=== PATIENT | female | born 1955 | race Caucasian/White ===

== ENCOUNTER 2016-09-29 12:32 | Emergency (ER) | payer OTHER ==
[2016-09-29 12:36] VITALS: TEMP 98.1; BMI 30.4
--- NOTE | 2016-09-29 13:47 | PDOC ---
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 Patient reports taking Isoniazid for latent TB for 3 weeks. She went to her PCP for a routine lab work yesterday and was told to stop taking her TB meds secondary to the elevated liver enzymes. Patient believes this is the first time she had her blood levels checked after taking her TB meds. She reports persistent nonproductive coughing. Patient denies any associated abd pain, n/v. Denies abdominal pain, nausea, vomiting, diarrhea Denies fever, chills Denies lightheadedness Denies chest pain, shortness of breath PCP: Dr. Cam <Jennifer Mallory - Last Filed: 09/29/16 17:29> - General Chief Complaint: Revisit, Lab Variance Stated Complaint: PCP SENT/LAB WORK Time Seen by Provider: 09/29/16 13:35 Past History - Past Medical History CVA: Yes DVT: Yes (LT leg) HTN: Yes Hypercholesterolemia: Yes HIV: Yes Suicide Attempt (Hx): No Lung CA: No (TB) - Psycho/Social/Smoking Cessation Hx Anxiety: No Suicidal Ideation: No Smoking Status: No Smoking History: Never smoked Have you smoked in the past 12 months: No Number of Cigarettes Smoked Daily: 0 Hx Alcohol Use: No Drug/Substance Use Hx: No Substance Use Type: None Hx Substance Use Treatment: No <Sukhdev Villalobos - Last Filed: 09/29/16 17:12> <Jennifer Mallory - Last Filed: 09/29/16 17:29> - Past Medical History Allergies/Adverse Reactions: Allergies Allergy/AdvReac Type Severity Reaction Status Date / Time No Known Allergies Allergy Verified 09/29/16 12:35 Home Medications: Ambulatory Orders Amlodipine Besylate [Norvasc -] 10 mg PO DAILY 11/12/12 Rivaroxaban [Xarelto -] 20 mg PO DAILY tablet 11/14/14 Alprazolam [Xanax] 0.5 mg PO BID PRN 09/29/16 Diphenhydramine [Benadryl -] 50 mg PO HS 09/29/16 Escitalopram Oxalate [Lexapro -] 10 mg PO DAILY 09/29/16 Ibuprofen [Motrin -] 600 mg PO BID PRN 09/29/16 Meclizine HCl [Antivert -] 25 mg PO DAILY PRN 09/29/16 Pyridoxine HCl [Vitamin B-6] 100 mg PO DAILY 09/29/16 Review of Systems - Review of Systems Able to Perform ROS?: Yes Comments:: 09/29/16 17:28 CONSTITUTIONAL: No reported: Fever, Chills, Diaphoresis, Generalized Weakness, Malaise, Loss of Appetite HEENT: No reported: Rhinorrhea, Nasal Congestion, Throat Pain, Throat Swelling, Difficulty Swallowing, Mouth Swelling, Ear Pain, Eye Pain, Visual Changes CARDIOVASCULAR: No reported: Chest Pain, Syncope, Palpitations, Irregular Heart Rate, Lightheadedness, Peripheral Edema RESPIRATORY: Reported: (+) nonproductive cough No reported: Shortness of Breath, SOB with Exertion, Orthopnea, Wheezing, Stridor, Hemoptysis GASTROINTESTINAL: No reported: Abdominal pain, Abdominal Distension, Nausea, Vomiting, Diarrhea, Constipation, Melena, Hematochezia GENITOURINARY: No reported: Dysuria, Frequency, Urgency, Hesitancy, Flank Pain, Genital Pain MUSCULOSKELETAL: No reported: Myalgia, Arthralgia, Joint Swelling, Back pain, Neck Pain SKIN: No reported: Rash, Itching, Pallor HEMEATOLOGIC/IMMUNOLOGIC: No reported: Easy Bleeding, Easy Bruising, Lymphadenopathy, Frequent infections ENDOCRINE: No reported: Unexplained Weight Gain, Unexplained Weight Loss, Heat Intolerance , Cold Intolerance NEUROLOGIC: No reported: Headache, Focal Weakness, Paresthesias, Vertigo, Lightheadedness, Unsteady Gait, Seizure, Mental Status Changes, Incontinence PSYCHIATRIC: No reported: Anxiety, Depression <Uts,Jennifer - Last Filed: 09/29/16 17:29> *Physical Exam - Vital Signs Last Vital Signs Temp Pulse Resp BP Pulse Ox 98.1 F 74 20 147/92 98 09/29/16 12:33 09/29/16 12:33 09/29/16 12:33 09/29/16 12:33 09/29/16 12:33 <Griselda,Sukhdev - Last Filed: 09/29/16 17:12> - Vital Signs Last Vital Signs Temp Pulse Resp BP Pulse Ox 98.1 F 74 20 147/92 98 09/29/16 12:33 09/29/16 12:33 09/29/16 12:33 09/29/16 12:33 09/29/16 12:33 - Physical Exam Comments: 09/29/16 17:29 GENERAL: The patient is awake, alert, and fully oriented, Nontoxic - in no acute distress. HEAD: Normocephalic, atraumatic. EYES: extraocular movements intact, sclera anicteric, conjunctiva clear. ENT: Normal voice, Moist mucous membranes. NECK: Normal range of motion, supple LUNGS: Breath sounds equal, clear to auscultation bilaterally. No wheezes, no rhonchi, no rales. HEART: Regular rate and rhythm, without murmur, rub or gallop. ABDOMEN: Soft, nontender, normoactive bowel sounds. No guarding, no rebound.No CVA tenderness EXTREMITIES: Normal range of motion, no edema. No clubbing or cyanosis. No cords, erythema, or tenderness. NEUROLOGICAL: No facial assymetry, Normal speech, PSYCH: Normal mood, normal affect. SKIN: Warm, Dry, normal turgor <Uts,Jennifer - Last Filed: 09/29/16 17:29> ED Treatment Course - LABORATORY CBC & Chemistry Diagram: 09/29/16 14:50 09/29/16 14:50 <Griselda,Sukhdev - Last Filed: 09/29/16 17:12> - LABORATORY CBC & Chemistry Diagram: 09/29/16 14:50 09/29/16 14:50 - ADDITIONAL ORDERS Additional order review: Laboratory Results 09/29/16 09/29/16 14:50 14:50 INR 1.36 H Sodium 143 Potassium 4.4 Chloride 108 H Carbon Dioxide 28 Anion Gap 7 L BUN 16 D Creatinine 1.1 H D Creat Clearance w eGFR 51.02 Random Glucose 104 Calcium 8.5 Total Bilirubin 0.6 D AST 620 H D ALT 559 H D Alkaline Phosphatase 91 Total Protein 6.6 Albumin 3.2 L 09/29/16 14:50 RBC 4.52 MCV 86.6 MCHC 32.8 RDW 13.7 MPV 8.3 Neutrophils % 62.1 Lymphocytes % 20.2 Monocytes % 14.6 H Eosinophils % 2.4 Basophils % 0.7 <Jennifer Mallory - Last Filed: 09/29/16 17:29> Medical Decision Making - Medical Decision Making 09/29/16 14:08 60y F hx of cva, dvt, htn, hl, latent tb on isoniazid sent to the ED for evaluation due to having elevated LFTs as outpatient. pt otherwise has no complaints beside a mild dry cough which is chronic for her. pts exam unremarkable will ck her labs pthas no labs here and has not had any recent blood work here 09/29/16 16:17 pts labs reviewed discussed with dr mónica rodgers pt had previous lfts showin/17 - AST 18, ALT 12, 09/28/16 - AST 613, ALT 499 will discuss with ID regarding recommendations to continue isoniazid vs alternative management 09/29/16 17:[address] orr would stop pts inh and follow her LFTS once lfts noramlizes possible she can start rifampin, but at this point will dfer further treatment to PMD I discussed the physical exam findings, ancillary test results and final diagnoses with the patient. I answered all of the patient's questions. The patient was satisfied with the care received and felt comfortable with the discharge plan and treatment plan. The patient will call their primary care physician within 24 hours to arrange follow-up and will return to the Emergency Department with any new, persistent or worsening symptoms. <Sukhdev Villalobos - Last Filed: 09/29/16 17:12> - Medical Decision Making 09/29/16 15:[address] Evangelista (covering for Dr. Cam) <Jennifer Mallory - Last Filed: 09/29/16 17:29> *DC/Admit/Observation/Transfer - Discharge Dispostion Admit: No <Sukhdev Villalobos - Last Filed: 09/29/16 17:12> - Attestations Scribe Attestion: 09/29/16 17:29 Documentation prepared by Jennifer Mallory, acting as medical case worker for Sukhdev Villalobos MD. <Jennifer Mallory - Last Filed: 09/29/16 17:29> Diagnosis at time of Disposition: Elevated liver enzymes - Discharge Dispostion Disposition: HOME Condition at time of disposition: Improved - Referrals Referrals: Tiffani Cam [Primary Care Provider] - - Patient Instructions Additional Instructions: Deje de roshan valenzuela isoniazida Seguimiento con sameer gamezico para valenzuela posterior manejo y para que claude enzimas hep curtis se repitan. Vuelva al departamento de emergencia inmediatamente con CUALQUIER nuevo, persistente o empeorando los sntomas. Debe llamar y seguir con valenzuela mdico maana para hiral evaluacin ms detallada de claude sntomas. Los resultados fueron discutidos con usted. Por favor, asegrese de que valenzuela mdico revise los resultados de valenzuela evaluacin de emergencia. Si usted tuvo alguna radiografa aleksandra valenzuela visita, fue ledo preliminarmente por m mismo, un Radilogo lo revisar y si hay algn hallazgo adicional le llamaremos. Stop taking your isoniazid Follow up with [facility] doctor for further management and to have your liver enzymes repeated. Return to the emergency department immediately with ANY new, persistent or worsening symptoms. You MUST call and follow up with your doctor tomorrow for further evaluation of your symptoms. Results were discussed with you. Please make sure your doctor reviews the results of your emergency evaluation. If you had any xrays during your visit, it was read preliminarily by myself, a Radiologist will review it and if there are any additional findings we will call you.
[2016-09-29 14:59] LABS: BASOPHIL 0.7 % (0-2.0); EOSINOPHIL 2.4 % (0-4.5); MCH 28.4 pg (25.7-33.7); MCHC 32.8 g/dl (32.0-36.0); MEAN CELL VOLUME 86.6 fl (80-96); MEAN PLT VOLUME 8.3 fl (7.5-11.1); NEUTROPHILS 62.1 % (42.8-82.8); PLATELET COUNT 243 K/MM3 (134-434); RDW 13.7 % (11.6-15.6); WHITE BLOOD COUNT 6.1 K/mm3 (4.0-10.0)
[2016-09-29 15:15] LABS: INR 1.36 (0.82-1.09); PROTHROMBIN TIME (PATIENT) 15.1 SEC (9.98-11.88)
[2016-09-29 15:28] LABS: ALBUMIN 3.2 g/dl (3.4-5.0); ALK PHOS 91 U/L (45-117); ANION GAP 7 (8-16); BILIRUBIN,TOTAL 0.6 mg/dL (0.2-1.0); CALCIUM 8.5 mg/dL (8.5-10.1); CO2 28 mmol/L (21-32); CREATININE 1.1 mg/dL (0.55-1.02); GLUCOSE,RANDOM 104 mg/dL (74-106); TOT PROT 6.6 g/dl (6.4-8.2)
[2016-09-29 15:30] LABS: SGOT/AST 620 U/L (15-37); SGPT/ALT 559 U/L (12-78)
[2016-09-29 18:07] VITALS: BP 126/80; PULSE 62
== END 2016-09-29 18:07 | disposition home or self-care (01) ==
LOC: JER 12:32
DX: R74.8 Abnormal levels of other serum enzymes (principal); I10 Essential (primary) hypertension; E78.00 Pure hypercholesterolemia, unspecified; Z86.73 Personal history of transient ischemic attack (TIA), and cerebral infarction without residual deficits; Z21 Asymptomatic human immunodeficiency virus [HIV] infection status; Z86.718 Personal history of other venous thrombosis and embolism; Z79.01 Long term (current) use of anticoagulants
CPT/HCPCS: 36415; 80053; 85025; 85610; 99283-25

== ENCOUNTER 2018-03-14 10:27 | Emergency (ER) | payer OTHER ==
[2018-03-14 10:43] VITALS: TEMP 97.9; BMI 31.6
[2018-03-14] MEDS ORDERED: ACETAMINOPHEN 1000 MG/100 ML VIAL (NON FORMULARY) IVPB ONE (11:17)
[2018-03-14] MEDS ORDERED: SODIUM CHLORIDE 1,000 ML IV STA (11:17)
[2018-03-14] MEDS ORDERED: ACETAMINOPHEN INJECTION 100 ML IVPB ONE (11:20)
[2018-03-14] MEDS ORDERED: ONDANSETRON 4 MG/2 ML VIAL IVPUSH ONE ×2 (11:20→14:55)
[2018-03-14] MEDS ORDERED: ONDANSETRON 4 MG/2 ML VIAL ONE ×2 (11:20→14:57)
--- NOTE | 2018-03-14 11:27 | PDOC ---
History of Present Illness - General Chief Complaint: Diarrhea Stated Complaint: DIARRHEA Time Seen by Provider: 03/14/18 10:52 History Source: Patient Exam Limitations: No Limitations - History of Present Illness Initial Comments: 03/14/18 11:27 Patient is a 62-year-old female with past medical history of CVA, DVT, PE, who presents to the emergency for "profuse diarrhea since 3 PM yesterday". Patient states that she has had loose runny diarrhea. She admits to eating chicken at a restaurant yesterday and it did not settle well on her stomach. Patient also admits to lower abdominal pain and nausea. Denies recent travel or antibiotic use. Denies drinking unclean water. Denies eating Andrew lettuce. Denies fevers , chills, difficulty breathing, chest pain, shortness of breath, vomiting, constipation, rectal bleeding, frequency, urgency and hematuria Past History - Travel Traveled outside of the country in the last 30 days: No Close contact w/someone who was outside of country & ill: No - Past Medical History Allergies/Adverse Reactions: Allergies Allergy/AdvReac Type Severity Reaction Status Date / Time No Known Allergies Allergy Verified 03/14/18 10:40 Home Medications: Ambulatory Orders Amlodipine Besylate [Norvasc -] 10 mg PO DAILY 11/12/12 Rivaroxaban [Xarelto -] 20 mg PO DAILY tablet 11/14/14 Alprazolam [Xanax] 0.5 mg PO BID PRN 09/29/16 Pyridoxine HCl [Vitamin B-6] 100 mg PO DAILY 09/29/16 Ondansetron [Zofran Odt -] 4 mg SL TID #10 od.tablet 03/14/18 CVA: Yes COPD: No DVT: Yes (LT leg) HTN: Yes Hypercholesterolemia: Yes Lung CA: No (TB) - Suicide/Smoking/Psychosocial Hx Smoking Status: No Smoking History: Never smoked Have you smoked in the past 12 months: No Number of Cigarettes Smoked Daily: 0 Hx Alcohol Use: No Drug/Substance Use Hx: No Substance Use Type: None Hx Substance Use Treatment: No Review of Systems - Review of Systems Able to Perform ROS?: Yes Comments:: 03/14/18 11:14 CONSTITUTIONAL: Absent: fever, chills, diaphoresis, generalized weakness, malaise, loss of appetite HEENT: Absent: rhinorrhea, nasal congestion, throat pain, throat swelling, difficulty swallowing, mouth swelling, ear pain, eye pain, visual Changes CARDIOVASCULAR: Absent: chest pain, loss of consciousness, palpitations, irregular heart rate, peripheral edema RESPIRATORY: Absent: cough, shortness of breath, dyspnea with exertion, orthopnea, wheezing, stridor, hemoptysis GASTROINTESTINAL: Present: abdominal pain, nausea, diarrhea Absent: abdominal distension, vomiting, constipation, melena, hematochezia GENITOURINARY: Absent: dysuria, frequency, urgency, hesitancy, hematuria, flank pain, genital pain MUSCULOSKELETAL: Absent: myalgia, arthralgia, joint swelling SKIN: Absent: rash, itching, pallor HEMATOLOGIC/IMMUNOLOGIC: Absent: easy bleeding, easy bruising, lymphadenopathy, frequent infections ENDOCRINE: Absent: unexplained weight gain, unexplained weight loss, heat intolerance, cold intolerance NEUROLOGIC: Absent: headache, focal weakness or paresthesias, dizziness, unsteady gait, seizure, mental status changes, bladder or bowel incontinence PSYCHIATRIC: Absent: anxiety, depression, suicidal or homicidal ideation, hallucinations. Is the patient limited [place]ian proficient: No *Physical Exam - Vital Signs Last Vital Signs Temp Pulse Resp BP Pulse Ox 97.9 F 69 18 144/83 99 03/14/18 10:42 03/14/18 10:42 03/14/18 10:42 03/14/18 10:42 03/14/18 10:42 - Physical Exam Comments: 03/14/18 11:15 GENERAL: Well developed, well nourished. Awake and alert. Pt appears uncomfortable. HEENT: Normocephalic, atraumatic. PERRLA, EOMI. No conjunctival pallor. Sclera are non- icteric. Moist mucous membranes. Oropharynx is clear. NECK: Supple. Full ROM. No JVD. Carotid pulses 2+ and symmetric, without bruits. No thyromegaly. No lymphadenopathy. CARDIOVASCULAR: Regular rate and rhythm. No murmurs, rubs, or gallops. Distal pulses are 2+ and symmetric. PULMONARY: No evidence of respiratory distress. Lungs clear to auscultation bilaterally. No wheezing, rales or rhonchi. ABDOMINAL: Soft. TTP of the LLQ with rebound. Non-distended. No guarding. No organomegaly. Normoactive bowel sounds. MUSCULOSKELETAL Normal range of motion at all joints. No bony deformities or tenderness. No CVA tenderness. EXTREMITIES: No cyanosis. No clubbing. No edema. No calf tenderness. SKIN: Warm and dry. Normal capillary refill. No rashes. No jaundice. NEUROLOGICAL: Alert, awake, appropriate. Cranial nerves 2-12 intact. No deficits to light touch and temperature in face, upper extremities and lower extremities. No motor deficits in the in face, upper extremities and lower extremities. Normoreflexic in the upper and lower extremities. Normal speech. Toes are down- going bilaterally. Gait is normal without ataxia. PSYCHIATRIC: Cooperative. Good eye contact. Appropriate mood and affect. Moderate Sedation - Procedure Monitoring Vital Signs: Procedure Monitoring Vital Signs Temperature 97.9 F 03/14/18 10:42 Pulse Rate 69 03/14/18 10:42 Respiratory Rate 18 03/14/18 10:42 Blood Pressure 144/83 03/14/18 10:42 O2 Sat by Pulse Oximetry (%) 99 03/14/18 10:42 ED Treatment Course - LABORATORY CBC & Chemistry Diagram: 03/14/18 11:14 03/14/18 11:14 Medical Decision Making - Medical Decision Making 03/14/18 11:35 Patient is a 62-year-old female past medical history of CVA, PE, DVT on anticoagulation, who presents to the emergency department for 1 day of diarrhea. On exam patient with significant left lower quadrant tenderness with rebound. Patient appears uncomfortable Differential diagnosis includes but is not limited to diverticulitis, colitis, C. difficile, gastroenteritis, less likely SBO given localized pain. VSS, afebrile Labs, lactic acid, urine, stool for culture, CTAP ordered. Fluids, Zofran and ofirmev ordered Reevaluate 03/14/18 14:35 CTAP: no evidence of acute abdominal pathology. No diverticulitis, colitis or appendicitis Lab work notable for mildly elevated WBC at 10.7, however no shift or bandemia Electrolytes are grossly normal C. Diff culture sent repeat abdominal exam with significantly less pain after toradol. At this time, I suspect a viral sydrome from the chicken she ate yesterday. Supportive therapy recommended. Pt to follow up with her PCP DC home I discussed the physical exam findings, ancillary test results and final diagnoses with the patient. I answered all of the patient's questions. The patient was satisfied with the care received and felt comfortable with the discharge plan and treatment plan. The Patient agrees to follow up with the primary care physician/specialist within 24-72 hours. Return precautions were given. *DC/Admit/Observation/Transfer Diagnosis at time of Disposition: Gastroenteritis - Discharge Dispostion Disposition: HOME Condition at time of disposition: Stable Decision to Admit order: No - Prescriptions Prescriptions: Ondansetron [Zofran Odt -] 4 mg SL TID #10 od.tablet - Referrals Referrals: Moe Castle MD [Staff Physician] - - Patient Instructions Printed Discharge Instructions: DI for Viral Gastroenteritis -- Adult Additional Instructions: You have diarrhea. Your CT scan was normal today. You may take tylenol as needed for pain. Do not exceed 4,000mg a day Avoid all dairy products until 48 hours after the vomiting/diarrhea has resolved. Eat a bland diet including apple sauce, toast, bananas, and plain rice Drink plenty of fluids including pedialyte, watered down juices and water Follow up with your primary care doctor this week Return to the ED if you develop fevers, abdominal pain, worsening vomiting, or if you have any changes in your symptoms. Tienes diarrea Valenzuela tomografa computarizada era normal hoy. Evite todos los productos lcteos hasta 48 horas despus de que se hayan resuelto los vmitos / diarrea. Coma hiral dieta blanda que incluya salsa de manzana, tostadas, pltanos y arroz. Jeanie muchos lquidos incluyendo pedialyte, jugos diluidos y agua. Aayush un seguimiento con valenzuela mdico de atencin primaria esta semana. Regrese a la sreedhar de urgencias si presenta fiebre, dolor abdominal, empeoramiento de los vmitos o si tiene algn cambio en claude sntomas. - Post Discharge Activity Forms/Work/School Notes: Back to Work
[2018-03-14 11:46] LABS: BASO % 0.8 % (0-2.0); EOS % 0.4 % (0-4.5); HEMATOCRIT 43.6 % (32.4-45.2); HEMOGLOBIN 14.1 GM/dL (10.7-15.3); LYMPH % 13.6 % (8-40); MCH 28.4 pg (25.7-33.7); MCHC 32.3 g/dl (32.0-36.0); MEAN CELL VOLUME 87.7 fl (80-96); MEAN PLT VOLUME 8.5 fl (7.5-11.1); MONO % 4.2 % (3.8-10.2); PLATELET COUNT 236 K/MM3 (134-434); RBC 4.97 M/mm3 (3.60-5.2); RDW 13.7 % (11.6-15.6); WHITE BLOOD COUNT 10.7 K/mm3 (4.0-10.0)
[2018-03-14 12:10] LABS: INR 1.02 (0.83-1.09)
[2018-03-14 12:12] LABS: ALBUMIN 3.6 g/dl (3.4-5.0); ALK PHOS 92 U/L (45-117); ANION GAP 8 MMOL/L (8-16); BILIRUBIN,TOTAL 0.6 mg/dL (0.2-1); BLOOD UREA NITROGEN 17 mg/dL (7-18); CALCIUM 9.2 mg/dL (8.5-10.1); CHLORIDE 107 mmol/L (98-107); CO2 25 mmol/L (21-32); CREATININE 0.9 mg/dL (0.55-1.3); GLUCOSE,RANDOM 124 mg/dL (74-106); LIPASE 146 U/L (73-393); POTASSIUM 3.8 mmol/L (3.5-5.1); SGOT/AST 17 U/L (15-37); SGPT/ALT 19 U/L (13-61); SODIUM 140 mmol/L (136-145); TOT PROT 7.3 g/dl (6.4-8.2)
[2018-03-14] MEDS ORDERED: ALPRAZolam 0.25 MG TABLET PO ONE (13:07)
[2018-03-14] MEDS ORDERED: ALPRAZolam 0.25 MG TABLET ONE (13:36)
[2018-03-14 14:22] LABS: URINE APPEARANCE CLEAR; URINE BILIRUBIN NEGATIVE (<2.0 mg/dL); URINE COLOR STRAW; URINE GLUCOSE (UA) NEGATIVE (NEGATIVE); URINE KETONE NEGATIVE (NEGATIVE); URINE LEUK ESTERASE NEGATIVE (NEGATIVE); URINE NITRITE NEGATIVE (NEGATIVE); URINE PROTEIN NEGATIVE (NEGATIVE); URINE UROBILINOGEN NEGATIVE mg/dL (0.2-1.0)
--- NOTE | 2018-03-14 14:47 | PDOC ---
*Physical Exam - Vital Signs Last Vital Signs Temp Pulse Resp BP Pulse Ox 97.9 F 69 18 144/83 99 03/14/18 10:42 03/14/18 10:42 03/14/18 10:42 03/14/18 10:42 03/14/18 10:42 - Physical Exam General Appearance: Yes: Nourished HEENT: positive: DIOGO Respiratory/Chest: positive: Lungs Clear, Normal Breath Sounds Cardiovascular: positive: Regular Rhythm, Regular Rate, S1, S2 Gastrointestinal/Abdominal: positive: Normal Bowel Sounds, Tender (llq ttp. no rebound no guarding. ), Flat Neurologic: positive: clinical pharmacologist II-XII NML intact, Fully Oriented, Alert, Normal Mood/ Affect ED Treatment Course - LABORATORY CBC & Chemistry Diagram: 03/14/18 11:14 03/14/18 11:14 - ADDITIONAL ORDERS Additional order review: Laboratory Results 03/14/18 03/14/18 03/14/18 14:09 13:12 11:19 PT with INR INR Sodium Potassium Chloride Carbon Dioxide Anion Gap BUN Creatinine Creat Clearance w eGFR Random Glucose Lactic Acid 1.0 Calcium Total Bilirubin AST ALT Alkaline Phosphatase Total Protein Albumin Lipase Urine Color Straw Urine Appearance Clear Urine pH 6.0 Ur Specific [place] 1.008 L Urine Protein Negative Urine Glucose (UA) Negative Urine Ketones Negative Urine Blood Negative Urine Nitrite Negative Urine Bilirubin Negative Urine Urobilinogen Negative Ur Leukocyte Esterase Negative Stool O & P Wet [place] Cancelled 03/14/18 03/14/18 11:14 11:14 PT with INR 12.00 INR 1.02 Sodium 140 Potassium 3.8 Chloride 107 Carbon Dioxide 25 Anion Gap 8 BUN 17 Creatinine 0.9 Creat Clearance w eGFR > 60 Random Glucose 124 H Lactic Acid Calcium 9.2 Total Bilirubin 0.6 AST 17 ALT 19 Alkaline Phosphatase 92 Total Protein 7.3 Albumin 3.6 Lipase 146 Urine Color Urine Appearance Urine pH Ur Specific [place] Urine Protein Urine Glucose (UA) Urine Ketones Urine Blood Urine Nitrite Urine Bilirubin Urine Urobilinogen Ur Leukocyte Esterase Stool O & P Wet [place] 03/14/18 11:14 RBC 4.97 MCV 87.7 MCHC 32.3 RDW 13.7 MPV 8.5 Neutrophils % 81.0 D Lymphocytes % 13.6 D Monocytes % 4.2 Eosinophils % 0.4 D Basophils % 0.8 - Medications Given in the ED: ED Medications Discontinued Medications Generic Name Dose Route Start Last Admin Trade Name Tiffanie PRN Reason Stop Dose Admin Acetaminophen 1,000 mg 03/14/18 11:17 03/14/18 11:37 Ofirmev Injection - IVPB 03/14/18 11:18 1,000 mg ONCE ONE Administration Alprazolam 0.25 mg 03/14/18 13:07 03/14/18 13:44 Xanax - PO 03/14/18 13:08 0.25 mg ONCE ONE Administration Sodium Chloride 1,000 mls @ 1,000 mls/hr 03/14/18 11:17 03/14/18 11:36 Normal Saline - IV 03/14/18 12:16 1,000 mls/hr ASDIR STA Administration Ondansetron HCl 4 mg 03/14/18 11:20 03/14/18 11:37 Zofran Injection IVPUSH 03/14/18 11:21 4 mg ONCE ONE Administration Medical Decision Making - Medical Decision Making 03/14/18 14:45 62 yo F with h/o prior cva, pt/ dvt on xarelto here with c/o loose watery stool since yesterday. no recent abx. no travel . no sick contacts. no h/o colitis or diverticuliti. no mod factors. all non bloody non bilious. no n/v no f/c on exam pt with mild llq ttp. no rebound no guarding. no cva tenderness. plan ct a/p differential includes diverticulitis colitis, uti pyelo, electroltyey abnormality, viral ge. ct a/p negative for acute pathology. wbc normal. electrolyte normal. ua negative for uti. camron viral ge. will dc home fu with gi. *DC/Admit/Observation/Transfer Diagnosis at time of Disposition: Gastroenteritis - Discharge Dispostion Disposition: HOME Condition at time of disposition: Stable - Referrals Referrals: Moe Castle MD [Staff Physician] - - Patient Instructions Printed Discharge Instructions: DI for Viral Gastroenteritis -- Adult Additional Instructions: You have diarrhea. Your CT scan was normal today. Avoid all dairy products until 48 hours after the vomiting/diarrhea has resolved. Eat a bland diet including apple sauce, toast, bananas, and plain rice Drink plenty of fluids including pedialyte, watered down juices and water Follow up with your primary care doctor this week Return to the ED if you develop fevers, abdominal pain, worsening vomiting, or if you have any changes in your symptoms. Tienes diarrea Valenzuela tomografa computarizada era normal hoy. Evite todos los productos lcteos hasta 48 horas despus de que se hayan resuelto los vmitos / diarrea. Coma hiral dieta blanda que incluya salsa de manzana, tostadas, pltanos y arroz. Jeanie muchos lquidos incluyendo pedialyte, jugos diluidos y agua. Aayush un seguimiento con valenzuela mdico de atencin primaria esta semana. Regrese a la sreedhar de urgencias si presenta fiebre, dolor abdominal, empeoramiento de los vmitos o si tiene algn cambio en claude sntomas. - Post Discharge Activity Forms/Work/School Notes: Back to Work
[2018-03-14] MEDS ORDERED: KETOROLAC TROMETHAMINE 30 MG/1 ML VIAL IVPUSH ONE (14:48)
[2018-03-14] MEDS ORDERED: KETOROLAC TROMETHAMINE 30 MG/1 ML VIAL ONE (14:54)
[2018-03-14 15:11] VITALS: BP 136/84; PULSE 72
== END 2018-03-14 16:26 | disposition home or self-care (01) ==
LOC: JER 10:27
PROC: 3E033NZ Introduction of Analgesics, Hypnotics, Sedatives into Peripheral Vein, Percutaneous Approach (ICD-10-PCS; principal; 2018-03-14)
PROC: 3E0333Z Introduction of Anti-inflammatory into Peripheral Vein, Percutaneous Approach (ICD-10-PCS; 2018-03-14)
PROC: 3E033GC Introduction of Other Therapeutic Substance into Peripheral Vein, Percutaneous Approach (ICD-10-PCS; 2018-03-14)
PROC: 3E0337Z Introduction of Electrolytic and Water Balance Substance into Peripheral Vein, Percutaneous Approach (ICD-10-PCS; 2018-03-14)
DX: K52.9 Noninfective gastroenteritis and colitis, unspecified (principal)
CPT/HCPCS: 36415; 74177-TC; 80053; 81003; 83605; 83690; 85025; 85610; 87040; 87045; 87046; 87086; 87186; 87324; 87449; 96361; 96374; 96375; 96376; 99284-25; J0131; J7030

== ENCOUNTER 2021-03-31 18:44 | Emergency (ER) | payer OTHER ==
[2021-03-31 18:50] VITALS: BMI 31.6
[2021-03-31] MEDS ORDERED: amLODIPine BESYLATE 10 MG TABLET (FP) PO ONE (19:53)
[2021-03-31 20:12] LABS: BASO % 0.6 % (0-2.0); EOS % 1.5 % (0-4.5); HEMOGLOBIN 14.4 GM/dL (10.7-15.3); LYMPH % 22.5 % (8-40); MCH 29.3 pg (25.7-33.7); MCHC 34.4 g/dl (32.0-36.0); MEAN CELL VOLUME 85.4 fl (80-96); MEAN PLT VOLUME 8.8 fl (7.5-11.1); MONO % 8.4 % (3.8-10.2); PLATELET COUNT 298 10^3/uL (134-434); RBC 4.92 M/mm3 (3.60-5.2); RDW 13.8 % (11.6-15.6)
[2021-03-31] MEDS ORDERED: amLODIPine BESYLATE 5 MG TABLET (FP) ONE (20:15)
[2021-03-31 20:21] LABS: INR 1.06 (0.83-1.09); PROTHROMBIN TIME (PATIENT) 11.9 SEC (9.7-13.0)
[2021-03-31 20:24] LABS: ACTIVATED PTT 28.8 SECONDS (25.2-36.5)
[2021-03-31 20:29] LABS: CHLORIDE 108 mmol/L (98-107); SODIUM 140 mmol/L (136-145)
[2021-03-31 20:31] LABS: CALCIUM 9.6 mg/dL (8.5-10.1)
[2021-03-31 20:32] LABS: ALBUMIN 3.5 g/dl (3.4-5.0); ANION GAP 5 MMOL/L (8-16); BLOOD UREA NITROGEN 20.7 mg/dL (7-18); CO2 27 mmol/L (21-32); GLUCOSE,RANDOM 98 mg/dL (74-106)
[2021-03-31 20:35] LABS: SGOT/AST 28 U/L (15-37); SGPT/ALT 21 U/L (13-61)
[2021-03-31 20:37] LABS: BILIRUBIN,TOTAL 0.4 mg/dL (0.2-1); TOT PROT 7.6 g/dl (6.4-8.2)
[2021-03-31 20:38] LABS: ALK PHOS 92 U/L (45-117)
[2021-03-31 21:10] LABS: URINE APPEARANCE CLEAR; URINE BILIRUBIN NEGATIVE (NEGATIVE); URINE COLOR YELLOW; URINE GLUCOSE (UA) NEGATIVE (NEGATIVE); URINE KETONE NEGATIVE (NEGATIVE); URINE LEUK ESTERASE NEGATIVE (NEGATIVE); URINE NITRITE NEGATIVE (NEGATIVE); URINE PROTEIN NEGATIVE (NEGATIVE); URINE UROBILINOGEN 0.2 mg/dL (0.2-1.0)
[2021-03-31 22:27] VITALS: TEMP 98.6
[2021-03-31 22:59] VITALS: BP 176/83; PULSE 60
== END 2021-03-31 23:17 | disposition home or self-care (01) ==
LOC: JER 18:44
DX: I16.1 Hypertensive emergency (principal)
CPT/HCPCS: 36415; 70450-TC; 71046-TC-FY; 80053; 81003; 82550; 84443; 84484; 85025; 85610; 85730; 87086; 93005; 93010; 99285-25